=== PATIENT | male | born 1990 | race Caucasian/White ===

== ENCOUNTER 2016-11-10 12:07 | Emergency (ER) | payer OTHER ==
--- NOTE | 2016-11-10 13:02 | EDM.PDOC ---
ED HPI Trauma - General Chief Complaint: Upper Extremity Injury/Pain Stated Complaint: SHOULDER PAIN Time Seen by Provider: 11/10/16 12:38 - History of Present Illness INITIAL COMMENTS - FREE TEXT/NARRATIVE: HISTORY AND PHYSICAL: History of present illness: Patient 26-year-old male presents concern of shoulder pain x1 month and worse over last several days it is very point specific trauma is no other concern. Review of systems: As per history of present illness and below otherwise all systems reviewed and negative. Past medical history: As per history of present illness and as reviewed below otherwise noncontributory. Surgical history: As per history of present illness and as reviewed below otherwise noncontributory. Social history: No reported history of drug or alcohol abuse. Family history: As per history of present illness and as reviewed below otherwise noncontributory. Physical exam: HEENT: Atraumatic, normocephalic, pupils reactive, negative for conjunctival pallor or scleral icterus, mucous membranes moist, throat clear, neck supple, nontender, trachea midline. Lungs: Clear to auscultation, breath sounds equal bilaterally, chest nontender. Heart: S1S2, regular, negative for clicks, rubs, or JVD. Abdomen: Soft, nondistended, nontender. Negative for masses or hepatosplenomegaly. Negative for costovertebral tenderness. Pelvis: Stable nontender. Genitourinary: Deferred. Rectal: Deferred. Extremities: Shoulders no localized tenderness no crepitation is slightly decreased range of motion with discomfort neurovascular exam and C&S are unremarkable Neuro: Awake, alert, oriented. Cranial nerves II through XII unremarkable. Cerebellum unremarkable. Motor and sensory unremarkable throughout. Exam nonfocal. Diagnostics: X-ray right shoulder Therapeutics: None Impression: #1 right shoulder pain Definitive disposition and diagnosis as appropriate pending reevaluation and review of above. Allergies/ADRs: Allergies No Known Allergies Allergy (Verified 11/10/16 12:54) Home Medications: Ambulatory Orders Escitalopram [Lexapro] 20 PO DAILY 11/10/16 Review of Systems - Review of Systems Review Of Systems: ROS reveals no pertinent complaints other than HPI. Trauma Exam - Physical Exam Exam: See Below (See dictation) Course - Vital Signs Last Recorded V/S: Last Vital Signs Temp 36.6 C 11/10/16 12:32 Pulse 68 04/25/17 12:32 Resp 20 11/10/16 12:32 BP 127/76 11/10/16 12:32 Pulse Ox 99 11/10/16 12:32 Departure - Departure Time of Disposition: 13:01 Disposition: Home, Self-Care 01 Condition: good Clinical Impression: Right shoulder pain Forms: ED Department Discharge Additional Instructions: The following information is given to patients seen in the emergency department who are being discharged to home. This information is to outline your options for follow-up care. We provide all patients seen in our emergency department with a follow-up referral. The need for follow-up, as well as the timing and circumstances, are variable depending upon the specifics of your emergency department visit. If you don't have a primary care physician on staff, we will provide you with a referral. We always advise you to contact your personal physician following an emergency department visit to inform them of the circumstance of the visit and for follow-up with them and/or the need for any referrals to a consulting specialist. The emergency department will also refer you to a specialist when appropriate. This referral assures that you have the opportunity for followup care with a specialist. All of these measure are taken in an effort to provide you with optimal care, which includes your followup. Under all circumstances we always encourage you to contact your private physician who remains a resource for coordinating your care. When calling for followup care, please make the office aware that this follow-up is from your recent emergency room visit. If for any reason you are refused follow-up, please contact the [facility] emergency department at and asked to speak to the emergency department charge nurse. [facility] Professional Building [address] [place] [address], [address] [place] [address] Motrin/Tylenol as directed sling as directed call schedule appointment above is discussed off work as discussed return as needed as discussed
--- NOTE | 2016-11-10 14:24 | CR ---
EXAM DATE: 11/10/16 PATIENT'S AGE: 26 Patient: CATHERINE RAY Facility: [place], [place] Site . Site : 1990 Study: XRay Shoulder Right [id number]/[id number] 1:25:23 PM Ordering Physician: Horacio Collier Final Report: Right shoulder 3 VIEWS INDICATION: Pain. IMPRESSION: No visualized fracture. Alignments anatomic. Joint spaces unremarkable. Dictated by Tim Groves MD @ Nov 10 2016 1:28PM (Electronic Signature) Report Signed by Proxy and Original Signed Document filed in the Medical Record. [facility]
[2016-11-10 15:54] VITALS: BP 125/74
== END 2016-11-10 14:40 | disposition home or self-care (01) ==
LOC: MW.ED 12:07
DX: M25.511 Pain in right shoulder (principal); Z79.899 Other long term (current) drug therapy
CPT/HCPCS: 73030-26-RT; 73030-RT; 99282; 99283

== ENCOUNTER 2021-09-12 13:25 | Emergency (ER) | payer OTHER, BC ==
[2021-09-12] MEDS ORDERED: Tetracaine HCl/PF 0.5% 4 ML Bottle EYEBOTH ONE (13:28)
[2021-09-12] MEDS ORDERED: Fluorescein 1 MG Ophth Strip EYEBOTH ONE (13:50)
[2021-09-12 14:31] VITALS: BP 144/96; PULSE 88
== END 2021-09-12 14:31 | disposition home or self-care (01) ==
LOC: MW.ED 13:25
DX: Z77.098 Contact with and (suspected) exposure to other hazardous, chiefly nonmedicinal, chemicals (principal)
CPT/HCPCS: 99283